=== PATIENT | female | born 1985 | race Caucasian/White ===

== ENCOUNTER 2018-01-16 17:05 | Emergency (ER) | payer MEDICAID ==
[~2018-01-16] VITALS: Ht 154.9 cm; Wt 77.1 kg
[~2018-01-16 17:05] MED LIST: CIPROFLOXACIN500 MG PO; FER300 PO; LAC PO; VITC PO
[2018-01-16 17:11] VITALS: Ht 154.9 cm; Wt 77.1 kg
[2018-01-16 22:31] LABS: BASOPHIL % 0.3 % (0-2); PLATELET COUNT 339 x10^3mcL (130-400)
[2018-01-16 22:38] LABS: CALCIUM 8.9 mg/dL (8.5-10.1); CARBON DIOXIDE 28.4 mmol/L (21-32); CHLORIDE SERUM 103 mmol/L (98-107); CREATININE SERUM 0.6 mg/dL (0.6-1.0); GFR1 > 60 mL/min; GLUCOSE SERUM 133 mg/dL (74-106); POTASSIUM SERUM 3.5 mmol/L (3.5-5.1); SODIUM SERUM 138 mmol/L (136-145)
[2018-01-16 22:42] LABS: ALBUMIN 3.7 g/dL (3.4-5.0); ALKALINE PHOSPHATASE 114 U/L (46-116); ALT/SGPT 25 U/L (14-59); AST/SGOT 16 U/L (15-37); BILIRUBIN TOTAL 0.3 mg/dL (0.20-1.00); TOTAL PROTEIN, SERUM 7.8 g/dL (6.4-8.2)
[2018-01-16 22:43] LABS: RED CELL DISTRIBUTION WIDTH 15.8 % (11.5-14.5)
[2018-01-16 23:40] VITALS: BP 115/76
== END 2018-01-16 23:04 | disposition home or self-care (01) ==
LOC: ED 17:05
PROVIDERS: Emergency Medicine
DX: R10.31 Right lower quadrant pain (principal); R11.0 Nausea; Z91.018 Allergy to other foods; Z98.890 Other specified postprocedural states
CPT/HCPCS: 36415

== ENCOUNTER 2018-02-24 09:54 | Emergency (ER) | payer MEDICAID ==
[~2018-02-24] VITALS: Ht 157.5 cm; Wt 78.0 kg
[2018-02-24 10:18] VITALS: BP 107/65
== END 2018-02-24 12:15 | disposition home or self-care (01) ==
LOC: ED 09:54
DX: R22.0 Localized swelling, mass and lump, head (principal); Z91.018 Allergy to other foods
CPT/HCPCS: J7030; J7512

== ENCOUNTER 2019-12-26 22:56 | Emergency (ER) | payer MEDICAID ==
[~2019-12-26] VITALS: Ht 160 cm; Wt 82.6 kg
[2019-12-26 23:15] VITALS: Ht 160 cm; Wt 82.6 kg
[2019-12-27 01:28] LABS: BASOPHIL % 1.6 % (0-2); PLATELET COUNT 350 x10^3mcL (130-400); RED CELL DISTRIBUTION WIDTH 13.7 % (11.5-14.5)
[2019-12-27 01:40] LABS: CALCIUM 8.9 mg/dL (8.5-10.1); CARBON DIOXIDE 26.9 mmol/L (21-32); CHLORIDE SERUM 103 mmol/L (98-107); CREATININE SERUM 0.6 mg/dL (0.6-1.0); GFR1 > 60 mL/min; GLUCOSE SERUM 101 mg/dL (74-106); POTASSIUM SERUM 3.7 mmol/L (3.5-5.1); SODIUM SERUM 139 mmol/L (136-145)
[2019-12-27 01:44] LABS: ALBUMIN 3.6 g/dL (3.4-5.0); ALKALINE PHOSPHATASE 111 U/L (46-116); ALT/SGPT 24 U/L (14-59); AST/SGOT 13 U/L (15-37); BILIRUBIN TOTAL 0.2 mg/dL (0.20-1.00); LIPASE 75 IU/L (73-393); TOTAL PROTEIN, SERUM 7.7 g/dL (6.4-8.2)
[2019-12-27 04:28] LABS: microscopic required? NO
[2019-12-27 04:38] LABS: urine erythrocyte NEGATIVE (NEGATIVE)
[2019-12-27 05:00] VITALS: BP 115/65
== END 2019-12-27 05:01 | disposition home or self-care (01) ==
LOC: ED 22:56
PROVIDERS: Emergency Medicine
DX: R10.813 Right lower quadrant abdominal tenderness (principal); R10.814 Left lower quadrant abdominal tenderness; Z98.890 Other specified postprocedural states; Z91.018 Allergy to other foods
CPT/HCPCS: J1885; J2405; J7030